=== PATIENT | male | born 2000 | race Caucasian/White ===

== ENCOUNTER 2022-09-30 16:26 | Observation (INO) ==
[2022-09-30] MEDS ORDERED: KETOROLAC TROMETHAMINE 15 MG/ML VIAL IV STA (16:42)
[2022-09-30] MEDS ORDERED: SODIUM CHLORIDE 0.9% 1000ML 1,000 ML IV STA (16:42)
--- NOTE | 2022-09-30 16:42 | ED Triage Note ---
Date of Service September 30, 2022 History of Present Illness This patient was briefly evaluated while in triage. An abbreviated physical exam was performed. This patient is a 22-year-old Male who presents to the ED for evaluation of RLQ abdominal pain that started 48 hrs ago. He denies any fevers, chills, nausea, vomiting, or urinary symptoms. No chest pain or shortness of breath. Physical Exam GENERAL: Non-toxic and in no acute distress. HEART: Regular rate and rhythm. LUNGS: Clear to auscultation. No accessory muscle use. ABDOMEN: Bowel sounds normoactive. Tender to palpation in the right lower quadrant. No guarding or rigidity. NEURO: Alert and oriented. No obvious neurological deficits. PSYCH: Patient is pleasant and answers all questions appropriately. Initial orders for labs and / or imaging were placed and patient was placed in the waiting area until a bed is available. Please see further documentation for the full ED course. MDM / Impression Impression Impression: Acute appendicitis
[2022-09-30 18:02] LABS: Appearance Urine Clear (Clear); Bilirubin Urine Negative (Negative); Blood Urine Negative (Negative); Color Urine Yellow; Glucose Urine UA Negative (Negative); Ketones Urine Trace (Negative); Leukocyte Esterase Urine Negative (Negative); Nitrite Urine Negative (Negative); Protein Urine Negative (Negative); Specific Gravity Urine 1.024 (1.000-1.030); Urobilinogen Urine Negative (Negative)
[2022-09-30 18:03] LABS: Basophils # (auto) 0.04 K/uL (0-0.2); Basophils % (auto) 0.5 %; Eosinophils # (auto) 0.17 K/uL (0-0.50); Eosinophils % (auto) 2.1 %; Hematocrit (blood only) 44.4 % (42.0-52.0); Hemoglobin 15.4 g/dl (14.0-18.0); Immature Granulocytes # (auto) 0.02 K/uL (0.01-0.20); Immature Granulocytes % (auto) 0.2 %; Lymphocytes # (auto) 1.82 K/uL (1.2-3.4); Lymphocytes % (auto) 22.2 %; Mean Corpuscular Hemoglobin 28.6 pg (25.0-34.0); Mean Corpuscular Hgb Conc 34.7 g/dL (32.0-36.0); Mean Corpuscular Volume 82.4 fL (80.0-100.0); Mean Platelet Volume 10.3 fL (9.4-12.4); Monocytes # (auto) 0.62 K/uL (0.11-0.59); Monocytes % (auto) 7.6 %; Neutrophils # (auto) 5.53 K/uL (1.40-6.50); Neutrophils % (auto) 67.4 %; Platelet Count 211 K/uL (130-400); RDW Coefficient of Variation 12.3 % (11.5-14.5); RDW Standard Deviation 37.2 fL (36.4-46.3); Red Blood Count 5.39 M/uL (4.70-6.10)
[2022-09-30 18:23] LABS: Alanine Aminotransferase 6 U/L (7-52); Albumin Globulin Ratio 1.6 (0.9-2); Alkaline Phosphatase 71 U/L (34-104); Anion Gap 6 (3-11); Aspartate Aminotransferase 23 U/L (13-39); BUN Creatinine Ratio 15.8 (10-20); Bilirubin,Total 0.5 mg/dl (0.2-1.0); Blood Urea Nitrogen 18 mg/dl (6-23); Calcium 9.9 mg/dl (8.5-10.1); Carbon Dioxide 31 mmol/L (21-32); Chloride 103 mmol/L (98-107); Est GFR (African American) 106.7 ml/min; Est GFR (Non-African American) 92.1 ml/min; Globulin 3.1 gm/dl (2.5-4.0); Glucose 88 mg/dl (70-99(Fasting)); Lipase 17 U/L (11-82); Sodium 140 mmol/L (136-145); Total Protein 8.1 gm/dl (6.0-8.3)
[2022-09-30] MEDS ORDERED: OPTIRAY 350 100ml IV ONE (19:28)
--- NOTE | 2022-09-30 19:34 | Emergency Department Note ---
History of Present Illness General Chief complaint: Abdominal Pain Stated complaint: REF BY RL TEJADA ABDOMINAL PAIN Time Seen by Provider: 09/30/22 18:36 History of Present Illness Maximum Pain Intensity: 0 Patient is a 22-year-old male who presents emergency department for evaluation of right lower quadrant abdominal pain. He reports his symptoms started about 2 days ago, Tuesday afternoon. It was a constant, dull, aching pain that has been constant over the last 2 days, it has plateaued. He rates his pain a 6/10 currently. He states it is located low in the right lower quadrant and does not radiate. It was worse when he exercised, so he stopped working out. He did try taking some ibuprofen for his symptoms. He denies any nausea, vomiting, diarrhea or constipation. No urinary symptoms. No fever or chills. He does workout regularly and admits that he could have pulled a muscle but he does not remember any specific injury to the area. Home Medications Medication Instructions Recorded Confirmed Type ibuprofen 200 mg tablet (Advil) 400 mg PO DIRECTED PRN 09/30/22 09/30/22 History PAIN/FEVER Allergies Allergy/AdvReac Type Severity Reaction Status Date / Time No Known Allergies Allergy Verified 09/30/22 19:59 Past Med/Surg History Medical History No significant past medical history Surgical History No history of previous surgery Social History Smoking Status: Never smoker Current Living Situation Comment: dorm current occupation: [employer] student from [place], [place] Feels Safe at Home: Yes Review of Systems A total of 10 systems reviewed and were otherwise negative Physical Exam Vital Signs Vital Signs - 24 hr 09/30/22 16:39 09/30/22 19:33 Temperature 36.7 C Temperature Source Temporal Artery Scan Pulse Rate 80 Pulse Rate [Finger] 98 H Pulse Rhythm [Finger] Regular Pulse Strength [Finger] Normal Respiratory Rate 20 18 Respiratory Effort / Characteristics Non-Labored Spontaneous Non-Labored Respiratory Depth Normal Normal Respiratory Pattern Regular Regular Blood Pressure 147/84 H Blood Pressure [Right Arm] 140/99 Blood Pressure Mean 105 Blood Pressure Mean [Right Arm] 112 Blood Pressure Position [Right Arm] Lying Pulse Oximetry 97 100 Oxygen Delivery Method Room Air Room Air Sepsis Recent Fever Within 48 Hours No Sepsis New/Unexplained Change in Mental Status No Sepsis Action Taken by Nursing No Action Required CONSTITUTIONAL: Patient is a pleasant, well-appearing 22-year-old male sitting semiupright on the gurney in no acute distress. EYES: Pupils equal, round, reactive to light and accommodation. EOMs intact without nystagmus. Sclera are anicteric. ENT: Tympanic membranes intact, with normal landmarks. External canals are clear. Oral and nasopharynx are clear. Mucous membranes are moist, no lesions, tongue and gums appear normal. CARDIOVASCULAR: Regular rate and rhythm. Peripheral pulses easily palpable. RESPIRATORY: Breath sounds equal and clear to auscultation. ABDOMEN: Bowel sounds are present. The abdomen is soft, scaphoid, tender to percussion over the right lower quadrant and tender to palpation in the right lower quadrant with voluntary guarding. INTEGUMENTARY: No lesions or rash, normal skin turgor. LYMPH: No lymphadenopathy. Course Course The patient was seen and assessed as above. External medical records were reviewed. He presents emergency department for evaluation of right lower quadrant abdominal pain x48 hours. Patient was seen in triage and critical pathways were implemented prior to my assessment of the patient. Laboratory studies including CBC with differential, CMP, lipase and urinalysis were obtained. He received a liter bolus of normal saline solution for hydration and was given Toradol 10 mg IV for discomfort. Laboratory studies were reviewed and interpreted by myself. There is no leukocytosis. No anemia. No electrolyte, renal function or liver function abnormalities. Lipase is not elevated and urine microscopy is completely clear. The patient was seen and examined by myself when he was placed in exam room with A2. He had just returned from CT scan. Laboratory studies are reviewed with him. He is aware that we are waiting on the report from his CT scan. CT scan per my interpretation and radiology report note acute uncomplicated appendicitis. The appendix is dilated and inflamed up to 1.5 cm with a punctate appendicolith and periappendiceal inflammation. No evidence for bowel obstruction or pneumoperitoneum. Patient was reassessed and CT scan results were discussed with him. He last ate at the dining booker around 1200 today-[place] and [place]. He has not had anything to eat or drink since. A preoperative COVID test was obtained and was negative. IV normal saline was restarted. Consultation was placed with general surgery, Dr. Rizo, who take the patient to the OR. ED case operator were made aware of the patient's diagnosis and plan for the OR. The patient remained stable while in the emergency department awaiting the OR. Administered Medications Sodium Chloride (Nss 1000ml) 1,000 mls @ 250 mls/hr IV .Q4H FIDEL Stop: 10/30/22 19:59 Last Admin: 09/30/22 20:06 Dose: 250 mls/hr Documented By: AVERY Discontinued Medications Sodium Chloride (Nss 1000ml) 1,000 mls @ 999 mls/hr IV .Q1H1M STA Stop: 09/30/22 17:42 Last Admin: 09/30/22 20:06 Dose: 999 mls/hr Documented By: AVERY Ioversol (Optiray 350 100ml) 85 ml IV ONCE ONE Stop: 09/30/22 19:29 Last Admin: 09/30/22 19:28 Dose: 85 ml Documented By: LOKESH Ketorolac Tromethamine (Ketorolac Tromethamine 15 Mg/Ml Vial) 10 mg IV NOW STA Stop: 09/30/22 16:43 Last Admin: 09/30/22 17:34 Dose: 10 mg Documented By: THANIA Medical Decision Making Differential Diagnosis Differential diagnoses considered included appendicitis, mesenteric adenitis, muscle strain, hernia, UTI, pyelonephritis, kidney stone, among others. Medical Records Attestation: I reviewed the patient's medical records. Home Medications Current Medication List: was personally reviewed by me Laboratory Data Attestation: I reviewed the patient's lab results. 09/30/22 17:45 09/30/22 17:45 Lab Results 09/30/22 09/30/22 09/30/22 Range/Units 17:43 17:45 17:45 WBC 8.20 (4.8-10.8) K/ul RBC 5.39 (4.70-6.10) M/uL Hgb 15.4 (14.0-18.0) g/dl Hct 44.4 (42.0-52.0) % MCV 82.4 (80.0-100.0) fL MCH 28.6 (25.0-34.0) pg MCHC 34.7 (32.0-36.0) g/dL RDW Std Deviation 37.2 (36.4-46.3) fL RDW Coeff of Jeremy 12.3 (11.5-14.5) % Plt Count 211 (130-400) K/uL MPV 10.3 (9.4-12.4) fL Immature Gran % (Auto) 0.2 % Neut % (Auto) 67.4 % Lymph % (Auto) 22.2 % [place] % (Auto) 7.6 % Eos % (Auto) 2.1 % Baso % (Auto) 0.5 % Neut # (Auto) 5.53 (1.40-6.50) K/uL Lymph # (Auto) 1.82 (1.2-3.4) K/uL [place] # (Auto) 0.62 H (0.11-0.59) K/uL Eos # (Auto) 0.17 (0-0.50) K/uL Baso # (Auto) 0.04 (0-0.2) K/uL Immature Gran # (Auto) 0.02 (0.01-0.20) K/uL Sodium 140 (136-145) mmol/L Potassium 4.0 (3.5-5.1) mmol/L Chloride 103 (98-107) mmol/L Carbon Dioxide 31 (21-32) mmol/L Anion Gap 6 (3-11) BUN 18 (6-23) mg/dl Creatinine 1.14 (0.6-1.4) mg/dl Est Cr Clr Drug Dosing Not Reportable Est GFR ( Amer) 106.7 ml/min Est GFR (Non-Af Amer) 92.1 ml/min BUN/Creatinine Ratio 15.8 (10-20) Glucose 88 (70-99(Fasting)) mg/dl Calcium 9.9 (8.5-10.1) mg/dl Total Bilirubin 0.5 (0.2-1.0) mg/dl AST 23 (13-39) U/L ALT 6 L (7-52) U/L Alkaline Phosphatase 71 (34-104) U/L Total Protein 8.1 (6.0-8.3) gm/dl Albumin 5.0 (3.4-5.0) gm/dl Globulin 3.1 (2.5-4.0) gm/dl Albumin/Globulin Ratio 1.6 (0.9-2) Lipase 17 (11-82) U/L Urine Color Yellow Urine Appearance Clear (Clear) Urine pH 6.0 (4.5-7.5) Ur Specific [place] 1.024 (1.000-1.030) Urine Protein Negative (Negative) Urine Glucose (UA) Negative (Negative) Urine Ketones Trace H (Negative) Urine Blood Negative (Negative) Urine Nitrite Negative (Negative) Urine Bilirubin Negative (Negative) Urine Urobilinogen Negative (Negative) Ur Leukocyte Esterase Negative (Negative) SARS-CoV-2, RNA, NAAT (NEGATIVE) 09/30/22 Range/Units 20:01 WBC (4.8-10.8) K/ul RBC (4.70-6.10) M/uL Hgb (14.0-18.0) g/dl Hct (42.0-52.0) % MCV (80.0-100.0) fL MCH (25.0-34.0) pg MCHC (32.0-36.0) g/dL RDW Std Deviation (36.4-46.3) fL RDW Coeff of [place] (11.5-14.5) % Plt Count (130-400) K/uL MPV (9.4-12.4) fL Immature Gran % (Auto) % Neut % (Auto) % Lymph % (Auto) % [place] % (Auto) % Eos % (Auto) % Baso % (Auto) % Neut # (Auto) (1.40-6.50) K/uL Lymph # (Auto) (1.2-3.4) K/uL [place] # (Auto) (0.11-0.59) K/uL Eos # (Auto) (0-0.50) K/uL Baso # (Auto) (0-0.2) K/uL Immature Gran # (Auto) (0.01-0.20) K/uL Sodium (136-145) mmol/L Potassium (3.5-5.1) mmol/L Chloride (98-107) mmol/L Carbon Dioxide (21-32) mmol/L Anion Gap (3-11) BUN (6-23) mg/dl Creatinine (0.6-1.4) mg/dl Est Cr Clr Drug Dosing Est GFR ( Amer) ml/min Est GFR (Non-Af Amer) ml/min BUN/Creatinine Ratio (10-20) Glucose (70-99(Fasting)) mg/dl Calcium (8.5-10.1) mg/dl Total Bilirubin (0.2-1.0) mg/dl AST (13-39) U/L ALT (7-52) U/L Alkaline Phosphatase (34-104) U/L Total Protein (6.0-8.3) gm/dl Albumin (3.4-5.0) gm/dl Globulin (2.5-4.0) gm/dl Albumin/Globulin Ratio (0.9-2) Lipase (11-82) U/L Urine Color Urine Appearance (Clear) Urine pH (4.5-7.5) Ur Specific [place] (1.000-1.030) Urine Protein (Negative) Urine Glucose (UA) (Negative) Urine Ketones (Negative) Urine Blood (Negative) Urine Nitrite (Negative) Urine Bilirubin (Negative) Urine Urobilinogen (Negative) Ur Leukocyte Esterase (Negative) SARS-CoV-2, RNA, NAAT NEGATIVE (NEGATIVE) Imaging Data Attestation: I personally reviewed and interpreted this imaging study as follows: Radiologist's Impression: Abdomen/Pelvis CT 09/30/22 16:[address] WITH IV CONTRAST CT DOSE: 336.83 mGy.cm HISTORY: Acute right lower quadrant abdominal pain RLQ abdominal pain TECHNIQUE: Multiaxial CT images of the abdomen and pelvis were performed following the IV administration of 82 cc of Optiray, A dose lowering technique was utilized adhering to the principles of ALARA. COMPARISON STUDY: None. FINDINGS: The lung bases are clear. The liver, spleen, contracted gallbladder, pancreas, kidneys, and adrenal glands are within normal limits. No bowel obstruction. The appendix is dilated and inflamed measuring up to 1.5 cm. Punctate appendicolith with periappendiceal inflammation. The study is limited w ithout the use of enteric contrast. Trace free pelvic fluid. Tiny fat filled umbilical hernia. The pelvic organs are unremarkable. No acute fracture. Moderate intervertebral disc space narrowing at L5-S1 with transitional lumbosacral anatomy. IMPRESSION: 1. Limited exam without the use of enteric contrast. 2. Acute uncomplicated appendicitis with subcentimeter appendicolith. 3. No bowel obstruction or pneumoperitoneum. ACT 112: Negative or not required by law. The above report was generated using voice recognition software. It may contain grammatical, syntax or spelling errors. Electronically signed by: Skip Garay M.D. 09/30/2022 7:50 PM MDM Narrative See ED course. Impression & Plan Acute appendicitis Discharge Plan Visit Data Chief Complaint: Abdominal Pain Stated Complaint: REF BY [facility] ABDOMINAL PAIN ED Provider: Edmundo Balbuena ED Midlevel Provider: Clinton Monte Discharge Problem: Acute appendicitis Patient Disposition: Being Evaluated by Surgeon Discharge Instructions Interventions: ED Discharge Assessment Last Done: 09/30/22 21:09 Forms Stand Alone Forms: [employer] Prescriptions Prescriptions: No Action ibuprofen [Advil] 200 mg Tablet 400 mg PO DIRECTED PRN (Reason: PAIN/FEVER) Referrals Referrals: PCP,NO [Physician] -
--- NOTE | 2022-09-30 19:52 | CT Scan Report ---
ABDOMEN AND PELVIS CT WITH IV CONTRAST CT DOSE: 336.83 mGy.cm HISTORY: Acute right lower quadrant abdominal pain RLQ abdominal pain TECHNIQUE: Multiaxial CT images of the abdomen and pelvis were performed following the IV administrat ion of 82 cc of Optiray, A dose lowering technique was utilized adhering to the principles of ALARA. COMPARISON STUDY: None. FINDINGS: The lung bases are clear. The liver, spleen, contracted gallbladder, pancreas, kidneys, and adrenal glands are within normal limits. No bowel obstruction. The appendix is dilated and inflamed measuring up to 1.5 cm. Punctate appendicolith with periappendiceal inflammation. The study is limite d without the use of enteric contrast. Trace free pelvic fluid. Tiny fat filled umbilical hernia. The pelvic organs are unremarkable. No acute fracture. Moderate intervertebral disc space narrowing at L 5-S1 with transitional lumbosacral anatomy. IMPRESSION: 1. Limited exam without the use of enteric contrast. 2. Acute uncomplicated appendicitis with subcentimeter appendicolith. 3. No bowel obstruction or pneumoperitoneum. ACT 112: Negative or not required by law. The above report was generated using voice recognition software. It may contain grammatical, syntax o r spelling errors. Electronically signed by: Skip Garay M.D. 09/30/2022 7:50 PM
[2022-09-30] MEDS: SODIUM CHLORIDE 0.9% 1000ML 1,000 ML IV SCH (20:06)
[2022-09-30] MEDS ORDERED: BUPIVACAINE/EPINEPHRINE 0.5% MPF 1:200,000 30 ML VIAL ONE (21:06)
--- NOTE | 2022-09-30 21:18 | History & Physical Report ---
Date of Service September 30, 2022 Assessment & Plan (1) Acute appendicitis: Plan: 22-year-old gentleman with acute appendicitis. I discussed the risks and benefits of a laparoscopic appendectomy with him. We discussed the postoperative course and recovery. All his questions were answered, he is agreeable to proceed. Consent has been obtained. We will take him to the operating room at the earliest convenience. History of Present Illness Primary Care Provider: [facility] 22-year-old presents with 2-day history of right lower quadrant pain. He denies any pain in the other quadrants of his abdomen. He denies fevers and chills. He has been eating normally. He denies nausea and vomiting. He denies chest pa in or shortness of breath. He has no prior history of surgery on his abdomen. CT scan demonstrates acute appendicitis with appendicolith. 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[place], [place] Feels Safe at Home: Yes Review of Systems Review of Systems: All systems reviewed & are unremarkable except as noted in HPI & below Physical Exam Constitutional: WD/WN, vitals as above Eyes: PERRL, conjunctivae normal, anicteric sclerae Neck: trachea midline, no thyromegaly Respiratory: normal respiratory effort; no respiratory distress and no labored breathing Cardiovascular: Rate/Rhythm: regular rate and regular rhythm Gastrointestinal (Abdomen): Inspection/Auscultation: abdomen normal to inspection; abdomen not distended Percussion/Palpation: + abdomen tender (RLQ) and abdomen soft; no guarding and abdomen not rigid Musculoskeletal: Extremities: no cyanosis and no clubbing Skin: no rashes, warm and dry Psychiatric: A+Ox3, euthymic affect Results & Data Results & Data ([facility]) Vital Signs (Past 12 Hours) Vital Signs Temp Pulse Pulse Resp BP BP Pulse Ox 09/30/22 19:33 98 H 18 140/99 100 09/30/22 16:39 36.7 C 80 20 147/84 H 97 O2 Del Method 09/30/22 19:33 Room Air 09/30/22 16:39 Room Air Laboratory Results 09/30/22 09/30/22 09/30/22 Range/Units 20:01 17:45 17:45 WBC 8.20 (4.8-10.8) K/ul RBC 5.39 (4.70-6.10) M/uL Hgb 15.4 (14.0-18.0) g/dl Hct 44.4 (42.0-52.0) % MCV 82.4 (80.0-100.0) fL MCH 28.6 (25.0-34.0) pg MCHC 34.7 (32.0-36.0) g/dL RDW Std Deviation 37.2 (36.4-46.3) fL RDW Coeff of Jeremy 12.3 (11.5-14.5) % Plt Count 211 (130-400) K/uL MPV 10.3 (9.4-12.4) fL Immature Gran % (Auto) 0.2 % Neut % (Auto) 67.4 % Lymph % (Auto) 22.2 % [place] % (Auto) 7.6 % Eos % (Auto) 2.1 % Baso % (Auto) 0.5 % Neut # (Auto) 5.53 (1.40-6.50) K/uL Lymph # (Auto) 1.82 (1.2-3.4) K/uL [place] # (Auto) 0.62 H (0.11-0.59) K/uL Eos # (Auto) 0.17 (0-0.50) K/uL Baso # (Auto) 0.04 (0-0.2) K/uL Immature Gran # (Auto) 0.02 (0.01-0.20) K/uL Sodium 140 (136-145) mmol/L Potassium 4.0 (3.5-5.1) mmol/L Chloride 103 (98-107) mmol/L Carbon Dioxide 31 (21-32) mmol/L Anion Gap 6 (3-11) BUN 18 (6-23) mg/dl Creatinine 1.14 (0.6-1.4) mg/dl Est Cr Clr Drug Dosing Not Reportable Est GFR ( Amer) 106.7 ml/min Est GFR (Non-Af Amer) 92.1 ml/min BUN/Creatinine Ratio 15.8 (10-20) Glucose 88 (70-99(Fasting)) mg/dl Calcium 9.9 (8.5-10.1) mg/dl Total Bilirubin 0.5 (0.2-1.0) mg/dl AST 23 (13-39) U/L ALT 6 L (7-52) U/L Alkaline Phosphatase 71 (34-104) U/L Total Protein 8.1 (6.0-8.3) gm/dl Albumin 5.0 (3.4-5.0) gm/dl Globulin 3.1 (2.5-4.0) gm/dl Albumin/Globulin Ratio 1.6 (0.9-2) Lipase 17 (11-82) U/L Urine Color Urine Appearance (Clear) Urine pH (4.5-7.5) Ur Specific [place] (1.000-1.030) Urine Protein (Negative) Urine Glucose (UA) (Negative) Urine Ketones (Negative) Urine Blood (Negative) Urine Nitrite (Negative) Urine Bilirubin (Negative) Urine Urobilinogen (Negative) Ur Leukocyte Esterase (Negative) SARS-CoV-2, RNA, NAAT NEGATIVE (NEGATIVE) 09/30/22 Range/Units 17:43 WBC (4.8-10.8) K/ul RBC (4.70-6.10) M/uL Hgb (14.0-18.0) g/dl Hct (42.0-52.0) % MCV (80.0-100.0) fL MCH (25.0-34.0) pg MCHC (32.0-36.0) g/dL RDW Std Deviation (36.4-46.3) fL RDW Coeff of Jeremy (11.5-14.5) % Plt Count (130-400) K/uL MPV (9.4-12.4) fL Immature Gran % (Auto) % Neut % (Auto) % Lymph % (Auto) % [place] % (Auto) % Eos % (Auto) % Baso % (Auto) % Neut # (Auto) (1.40-6.50) K/uL Lymph # (Auto) (1.2-3.4) K/uL [place] # (Auto) (0.11-0.59) K/uL Eos # (Auto) (0-0.50) K/uL Baso # (Auto) (0-0.2) K/uL Immature Gran # (Auto) (0.01-0.20) K/uL Sodium (136-145) mmol/L Potassium (3.5-5.1) mmol/L Chloride (98-107) mmol/L Carbon Dioxide (21-32) mmol/L Anion Gap (3-11) BUN (6-23) mg/dl Creatinine (0.6-1.4) mg/dl Est Cr Clr Drug Dosing Est GFR ( Amer) ml/min Est GFR (Non-Af Amer) ml/min BUN/Creatinine Ratio (10-20) Glucose (70-99(Fasting)) mg/dl Calcium (8.5-10.1) mg/dl Total Bilirubin (0.2-1.0) mg/dl AST (13-39) U/L ALT (7-52) U/L Alkaline Phosphatase (34-104) U/L Total Protein (6.0-8.3) gm/dl Albumin (3.4-5.0) gm/dl Globulin (2.5-4.0) gm/dl Albumin/Globulin Ratio (0.9-2) Lipase (11-82) U/L Urine Color Yellow Urine Appearance Clear (Clear) Urine pH 6.0 (4.5-7.5) Ur Specific [place] 1.024 (1.000-1.030) Urine Protein Negative (Negative) Urine Glucose (UA) Negative (Negative) Urine Ketones Trace H (Negative) Urine Blood Negative (Negative) Urine Nitrite Negative (Negative) Urine Bilirubin Negative (Negative) Urine Urobilinogen Negative (Negative) Ur Leukocyte Esterase Negative (Negative) SARS-CoV-2, RNA, NAAT (NEGATIVE) Diagnostic Findings ABDOMEN AND PELVIS CT WITH IV CONTRAST CT DOSE: 336.83 mGy.cm HISTORY: Acute right lower quadrant abdominal pain RLQ abdominal pain TECHNIQUE: Multiaxial CT images of the abdomen and pelvis were performed following the IV administration of 82 cc of Optiray, A dose lowering technique was utilized adhering to the principles of ALARA. COMPARISON STUDY: None. FINDINGS: The lung bases are clear. The liver, spleen, contracted gallbladder, pancreas, kidneys, and adrenal glands are within normal limits. No bowel obstruction. The appendix is dilated and inflamed measuring up to 1.5 cm. Punctate appendicolith with periappendiceal inflammation. The study is limited without the use of enteric contrast. Trace free pelvic fluid. Tiny fat filled u mbilical hernia. The pelvic organs are unremarkable. No acute fracture. Moderate intervertebral disc space narrowing at L5-S1 with transitional lumbosacral anatomy. IMPRESSION: 1. Limited exam without the use of enteric contrast. 2. Acute uncomplicated appendicitis with subcentimeter appendicolith. 3. No bowel obstruction or pneumoperitoneum.
[2022-09-30] MEDS ORDERED: ONDANSETRON INJ 2 MG/ML 2 ML VIAL IV PRN (21:27)
[2022-09-30] MEDS ORDERED: ePHEDrine sulfate 50 MG/ML AMP IV PRN (21:27)
[2022-09-30] MEDS ORDERED: ATROPINE SULFATE 0.1 MG/ML 10ML SYR IV PRN (21:27)
--- NOTE | 2022-09-30 21:27 | Anesthesiology Consultation ---
Date of Service September 30, 2022 Assessment & Plan (1) Encounter for pre-operative examination: Chart Review Chart Review: Acceptable Risk for Surgery and Patient NOT seen in Pre Admission Testing Consults Requested none History Surgery Operation Date: 09/30/22 21:00 Proposed Procedures p Laparoscopic Appendectomy - Davidson Rizo MD Height/Weight Height: 6 ft Weight: 75 kg Allergies Allergy/AdvReac Type Severity Reaction Status Date / Time No Known Allergies Allergy Verified 09/30/22 19:59 Medications Home Medications Medication Instructions Recorded Confirmed Last Taken ibuprofen 200 mg tablet (Advil) 400 mg PO DIRECTED PRN 09/30/22 09/30/22 09/30/22 12:30 PAIN/FEVER Active Medications Generic Name Dose Route Start Last Admin Trade Name Freq PRN Reason Stop Dose Admin Sodium Chloride 1,000 mls @ 250 mls/hr 09/30/22 20:00 09/30/22 20:06 Nss 1000ml IV 10/30/22 19:59 250 mls/hr .Q4H FIDEL Administration Past Medical History Medical History No significant past medical history Past Surgical History Surgical History No history of previous surgery Social History Smoking Status: Never smoker Physical Exam Vital Signs Last Vital Signs Temp 98.1 F 09/30/22 16:39 Pulse 98 H 09/30/22 19:33 Resp 18 09/30/22 19:33 BP 140/99 09/30/22 19:33 Pulse Ox 100 09/30/22 19:33 O2 Del Method Room Air 09/30/22 19:33 Testing Laboratory Results 09/30/22 17:45 09/30/22 17:45 Urine Color Yellow 09/30/22 17:43 Urine Appearance Clear (Clear) 09/30/22 17:43 Urine pH 6.0 (4.5-7.5) 09/30/22 17:43 Ur Specific [place] 1.024 (1.000-1.030) 09/30/22 17:43 Urine Protein Negative (Negative) 09/30/22 17:43 Urine Glucose (UA) Negative (Negative) 09/30/22 17:43 Urine Ketones Trace (Negative) H 09/30/22 17:43 Urine Nitrite Negative (Negative) 09/30/22 17:43 Ur Leukocyte Esterase Negative (Negative) 09/30/22 17:43
[2022-09-30] MEDS ORDERED: fentaNYL citrate 100 MCG/2 ML VIAL ONE (21:31)
[2022-09-30] MEDS ORDERED: PROPOFOL IV EMULSION 10 MG/ML 20 ML VIAL IV ONE (21:31)
[2022-09-30] MEDS ORDERED: MIDAZOLAM HCL 1 MG/ML 2ML VIAL ONE (21:31)
[2022-09-30] MEDS ORDERED: ONDANSETRON INJ 2 MG/ML 2 ML VIAL ONE (21:31)
[2022-09-30] MEDS ORDERED: ROCURONIUM BROMIDE 10 MG/ML 5 ML VIAL IV ONE (21:31)
[2022-09-30] MEDS ORDERED: DEXAMETHASONE SOD INJ 4 MG/ML VIAL ONE (21:31)
[2022-09-30] MEDS ORDERED: SUCCINYLCHOLINE 100MG/5ML SYR IV ONE (21:31)
[2022-09-30] MEDS ORDERED: LIDOCAINE 2% MPF LOCAL 5 ML VIAL INFIL ONE (21:31)
[2022-09-30] MEDS ORDERED: ceFAZolin 330 MG/ML 1 GM VIAL ONE (21:54)
[2022-09-30] MEDS ORDERED: SUGAMMADEX SODIUM 200 MG/2 ML VIAL IV ONE (22:03)
[2022-09-30] MEDS ORDERED: ceFAZolin 2000MG 2,000 MG/15 ML SYR IV ONE (22:29)
--- NOTE | 2022-09-30 22:35 | Operative Report ---
Post Operative Report Pre & Post Diagnosis Operation Date: 09/30/22 21:00 Pre-Op Diagnosis: Acute appendicitis Post-Op Diagnosis: Acute appendicitis I identified the patient and participated in the time-out.: Yes Procedure Operation Date: 09/30/22 21:00 Actual Procedures p Laparoscopic Appendectomy(Not Applicable) - Davidson Rizo MD Surgeon Davidson Rizo MD Food Safety Coordinator None Estimated Blood Loss 5 Findings Consistent with Post-Op Diagnosis Acute appendicitis Specimens Appendix Drains None Anesthesia Type General Complications No immediate complications Description of Procedure The patient was taken to the operating room, and placed supine on the operating table. A timeout was performed, perioperative antibiotics were administered, SCD boots were placed. After adequate anesthesia and analgesia was obtained, the abdomen was prepped and draped in the normal sterile fashion. A 1 cm incision was made in the supraumbilical region and carried down to the level of the fascia. A trach hook was used to grasp the fascia and elevated and a varies needle was used to enter the abdominal cavity. The abdomen was insufflated to a pressure of 15 mmHg, and a 5 mm trocar was placed in this location. A 5 mm 30 degree laparoscope was placed into the abdominal cavity, and the abdomen was surveyed. The patient was placed in Trendelenburg and slightly to the left. One 5 mm tr ocar was placed in the right upper quadrant, and one 12 mm trocar was placed in the left lower quadrant under direct visualization. The right colon was identified and traced down to the cecum. The appendix was identified and elevated anteriorly and medially. A window was created at the base of the appendix with a [place] dissector. The Endo MARILOU stapler was used to transect the appendix at its base through noninflamed tissue, and subsequently the mesoappendix. The appendix was placed in an Endo Catch bag, and removed via the left lower quadrant port site. Attention was turned to hemostasis, which was excellent. The abdomen was copiously irrigated and suctioned free, and again hemostasis was found to be excellent. All trochars removed under direct visualization. The abdomen was desufflated. The fascia in the 12 mm port site was closed with a 0 Vicryl suture. The skin was closed with a running 4-0 Monocryl subcuticular stitch. Dermabond was applied. The patient tolerated the procedure without complication, and was transferred in stable condition to the PACU. All instrument, needle, and sponge counts were correct at the end of the case. I attest to the content of the Intraoperative Record and any orders documented therein. Any exceptions are noted below.
[2022-09-30] MEDS: fentaNYL citrate 100 MCG/2 ML VIAL IV PRN ×2 (23:01→23:22)
--- NOTE | 2022-09-30 23:09 | Anesthesiology Progress Note ---
Date of Service September 30, 2022 Anesthesia Post Procedure Vital Signs Vital Signs: Temp Pulse Pulse Pulse Resp BP BP 09/30/22 22:50 91 H 18 140/71 09/30/22 22:40 98.1 F 103 H 12 128/61 09/30/22 19:33 98 H 18 09/30/22 16:39 98.1 F 80 20 147/84 H BP Pulse Ox O2 Del Method O2 Flow Rate 09/30/22 22:50 97 Room Air 09/30/22 22:40 96 Nasal Cannula 4 09/30/22 19:33 140/99 100 Room Air 09/30/22 16:39 97 Room Air Pain Intensity Abdomen: Pain Intensity: 3 Transfer of Care Handoff Completed per policy Notes Mental Status: alert / awake / arousable and participated in evaluation Patient Amnestic to Procedure: Yes Nausea / Vomiting: adequately controlled Pain: adequately controlled Airway Patency, RR, SpO2: stable & adequate BP & HR: stable & adequate Hydration State: stable & adequate Anesthetic Complications: no major complications apparent and Pt Satisfied with anesthetic care
[2022-10-01] MEDS ORDERED: PROMETHAZINE HCL 12.5 MG in SODIUM CHLORIDE 0.9% 50 ML IV PRN (00:07)
[2022-10-01] MEDS ORDERED: diphenhydrAMINE Capsule 25 MG CAP PO PRN (00:07)
[2022-10-01] MEDS ORDERED: MoRPHine SULFATE 2 MG/ML CARP IV PRN (00:07)
[2022-10-01] MEDS ORDERED: oxyCODONE/ACETAMINOPHEN 5mg/325mg TAB PO PRN (00:07)
[2022-10-01] MEDS ORDERED: ONDANSETRON INJ 2 MG/ML 2 ML VIAL IV PRN (00:07)
[2022-10-01] MEDS ORDERED: KETOROLAC 30 MG/ML VIAL IV PRN (00:07)
[2022-10-01] MEDS: SODIUM CHLORIDE 0.9% 1000ML 1,000 ML IV SCH ×2 (00:22→04:44)
--- NOTE | 2022-10-01 07:44 | Surgery Progress Note ---
Date of Service October 01, 2022 Assessment & Plan (1) Acute appendicitis: Plan: POD #1 s/p lap appendectomy Doing well Advance diet as tolerated Incentive spirometer and aggressive pulmonary toilet Pain control with Percocet DVT prophylaxis with SCD boots and Lovenox Probable discharge to home late morning/early afternoon Admission and Anticipated Discharge Date Admission Date: September 30, 2022 Subjective POD #1 status post lap appendectomy Doing well. Minimal pain. No nausea or vomiting. Tolerating clears. No fevers or chills. Physical Exam Physical Exam: NAD, A&O x3 Abdomen: Soft, mild TTP diffusely; mild distention, Incisions healing well without erythema or discharge; Dermabond in place Results & Data ([facility]) Vital Signs (Past 12 Hours) Vital Signs Temp Pulse Pulse Resp BP Pulse Ox O2 Del Method 10/01/22 02:50 36.7 C 91 H 18 147/71 H 95 Room Air 10/01/22 00:50 36.7 C 101 H 16 120/74 97 Room Air 10/01/22 00:20 36.9 C 103 H 16 131/83 97 Room Air 09/30/22 23:50 36.5 C 96 H 16 127/82 97 Room Air 09/30/22 23:40 87 20 132/81 95 Room Air 09/30/22 23:30 91 H 20 132/88 95 Room Air 09/30/22 23:20 100 H 14 134/88 100 Room Air 09/30/22 23:10 91 H 16 133/81 99 Room Air 09/30/22 23:00 99 H 18 131/80 98 Room Air 09/30/22 22:50 91 H 18 140/71 97 Room Air 09/30/22 22:40 36.7 C 103 H 12 128/61 96 Nasal Cannula O2 Flow Rate 10/01/22 02:50 10/01/22 00:50 10/01/22 00:20 09/30/22 23:50 09/30/22 23:40 09/30/22 23:30 09/30/22 23:20 09/30/22 23:10 09/30/22 23:00 09/30/22 22:50 09/30/22 22:40 4
[2022-10-01] MEDS ORDERED: ENOXAPARIN INJ 40 MG/0.4 ML SYR SQ SCH (08:00)
--- NOTE | 2022-10-01 10:58 | Discharge Summary ---
Date of Service October 01, 2022 Admission HPI Per Admitting Provider 22-year-old presents with 2-day history of right lower quadrant pain. He denies any pain in the other quadrants of his abdomen. He denies fevers and chills. He has been eating normally. He denies nausea and vomiting. He denies chest pain or shortness of breath. He has no prior history of surgery on his abdomen. CT scan demonstrates acute appendicitis with appendicolith. Principal Diagnosis Acute appendicitis Discharge Data Allergies Allergy/AdvReac Type Severity Reaction Status Date / Time No Known Allergies Allergy Verified 09/30/22 19:59 Procedures Performed Operation Date: 09/30/22 21:00 Actual Procedures p Laparoscopic Appendectomy(Not Applicable) - Davidson Rizo MD Ordered Studies 09/30/22 16:42 CT abd pelvis IV con only Stat Hospital Course (1) Acute appendicitis: Patient was taken to operating room for laparoscopic appendectomy. Patient found to have acute appendicitis without perforation or abscess. Patient transferred to recovery then to medical/surgical floor for postoperative care. Diet advanced as tolerated, activity as tolerated, IV toradol and Morphine prn pain and PO Percocet. Patient tolerated regular diet, urinating without difficulty, pain controlled without narcotics. Patient was discharged home on POD # 1 in stable condition. Total Time Total Time Spent Total Time Spent (In Minutes): 15 minutes Total Time Includes: Examination of the Patient, Discharge Planning and Medication Reconciliation Discharge Plan Discharge Items Patient Disposition: Home - Self-Care Reason For Visit: POSTOP LAP APPENDECTOMY Discharge Diagnosis: Acute appendicitis, s/p laparoscopic appendectomy Activity: Per Instructions section Non-emergency contact: Primary Care Provider and Surgeon Call non-emergency contact if: you have any medication questions, your pain is not controlled, your pain is worsening, you have a fever, your temperature is above 101, your wound has increased redness, your wound has increased drainage and your wound pain has increased Follow-up/Referrals: Emily Ferreira PA-C [Physician English Professor] - (2 week follow-up) PCPMELLO [Physician] - Diet: Regular Addtl Attending Provider Instructions: Post-Surgical ~Discharge Instructions Activity Recommendations: - lifting limitation: (20 pounds for 2-3 weeks), - exercise/sex/sports limit: (nonstrenuous for 2 weeks), - driving or machine use limit: (none for 1 week or until pain free and no longer taking narcotic pain medication), - Shower/bathe limit: (may shower) Diet: - Resume previous diet SPECIAL CARE INSTRUCTIONS: - May shower. Let water run over area and pat dry. - Surgical glue will fall off on its own. - Call the surgeon's office with any questions or concerns - - (ex. temperature higher than 101 degrees F, excessive bleeding or pain). MEDICATIONS: - Resume previous medications unless instructed otherwise by your surgeon. - May alternate extra strength Tylenol and Ibuprofen as needed for mild to moderate pain - Tylenol 650 mg every 6 hours as needed - Ibuprofen 600 mg every 6 hours as needed (take with food) - Percocet 1 every 6 hours, as needed for moderate to severe pain FOLLOW UP VISIT: - If not already scheduled, please call the office to schedule a two week follow-up appointment. Office number Pending Studies at Discharge: Yes (appendix pathology, will be reviewed at postop visit) Stand-Alone Forms: My [facility], Smoking Cessation Medications and DC Order Prescriptions: New oxycodone-acetaminophen 5-325 mg tablet 1 tab PO Q6H PRN (Reason: pain) Qty: 5 0RF Continued ibuprofen [Advil] 200 mg Tablet 400 mg PO DIRECTED PRN (Reason: PAIN/FEVER) Discharge Orders: Discharge Order (Routine); Ordered 10/01/22 Ordered By: Emily Ferreira Admission Data Admit Date/Time: 09/30/22 22:39 Attending Provider: Davidson Rizo Admit Provider: Davidson Rizo Primary Care Provider: [facility]
== END 2022-10-01 12:19 | disposition home or self-care (01) ==
LOC: ED 16:26 → OR 21:09 → 3N 21:09